=== PATIENT | female | born 1995 | race American Indian/Alaskan Native ===

== ENCOUNTER 2017-06-18 16:59 | Emergency (ER) | payer OTHER ==
[2017-06-18 16:59] VITALS: BMI 38.7
[2017-06-18 18:05] VITALS: BP 132/84; PULSE 86; RESP 18; TEMP 98.3; O2SAT 98
[2017-06-18 18:53] LABS: HCG,QUALITATIVE URINE NEGATIVE (NEGATIVE)
[2017-06-18 18:57] LABS: SQUAMOUS EPITHIAL 4 /hpf (0-5); URINE BACTERIA OCC (<OCC); URINE BILIRUBIN NEGATIVE (NEGATIVE); URINE BLOOD 3+ (NEGATIVE); URINE CLARITY Hazy (Clear); URINE COLOR Yellow (YELLOW); URINE GLUCOSE (UA) NORMAL (Normal); URINE LEUKOCYTE ESTERASE NEG Leu/uL (Negative); URINE PROTEIN NEGATIVE (NEGATIVE)
[2017-06-18] MEDS ORDERED: Sodium Chloride 0.9% 1,000 ML IV ONE (19:04)
[2017-06-18 19:08] LABS: BASO # 0.1 K/uL (0.0-0.2); EOS # 0.1 K/uL (0.0-0.7); EOS % 1.2 % (0.0-4.0); HEMOGLOBIN 13.2 g/dL (11.0-16.0); LYMPH # 2.6 K/uL (1.0-4.3); LYMPH % 36.4 % (20.0-40.0); MEAN CELL VOLUME 87.4 fL (81.0-99.0); MEAN CORPUSCULAR HEMOGLOBIN 29.7 pg (27.0-31.0); MEAN PLATELET VOLUME 8.2 fL (7.2-11.7); MONO # 0.7 K/uL (0.0-0.8); MONO % 9.1 % (0.0-10.0); NEUT # 3.8 K/uL (1.8-7.0); NEUT % 52.3 % (50.0-75.0); NRBC % 0.1 % (0.0-2.0); RBC 4.42 Mil/uL (3.80-5.20); RED CELL DISTRIBUTION WIDTH 13.8 % (11.5-14.5); WHITE BLOOD COUNT 7.2 K/uL (4.8-10.8)
[2017-06-18] MEDS ORDERED: Sodium Chloride 0.9% 1,000 ML ONE (19:12)
[2017-06-18 19:21] LABS: ALB/GLOB RATIO 1.1 (1.0-2.1); ALBUMIN 3.7 g/dL (3.5-5.0); ALT/SGPT 29 U/L (9-52); AST/SGOT 18 U/L (14-36); BLOOD UREA NITROGEN 9 mg/dL (7-17); CALCIUM 8.8 mg/dl (8.6-10.4); GFR AFRICAN-AMERICAN > 60; GFR NON-AFRICAN AMERICAN > 60
--- NOTE | 2017-06-18 19:54 | C.PDOC ---
History Of Present Illness 21 year old female presents to the ED for evaluation of lightheadedness and weakness. Patient states she has been having heavy menses since 06/02 that is associated with pelvic cramping. Patient reports history of heavy periods. She is unsure if she is . Patient denies chest pain, shortness of breath, palpitations, nausea, vomiting, and diarrhea. Time Seen by Provider: 06/18/17 18:44 Chief Complaint (Nursing): Female Genitourinary History Per: Patient History/Exam Limitations: no limitations Onset/Duration Of Symptoms: Days Current Symptoms Are (Timing): Still Present Associated Symptoms: denies: Nausea, Vomiting, Diarrhea Additional History Per: Patient Past Medical History Reviewed: Historical Data, Nursing Documentation, Vital Signs Vital Signs: Last Vital Signs Temp 98.3 F 06/18/17 18:04 Pulse 86 06/18/17 18:04 Resp 18 06/18/17 18:04 BP 132/84 06/18/17 18:04 Pulse Ox 98 06/18/17 20:12 - Medical History PMH: No Chronic Diseases Surgical History: Appendectomy Family History: States: Unknown Family Hx - Social History Hx Tobacco Use: Yes Hx Alcohol Use: No Hx Substance Use: No - Immunization History Hx Tetanus Toxoid Vaccination: (Unknown) Hx Influenza Vaccination: Yes (UTD) Hx Pneumococcal Vaccination: No Review Of Systems Cardiovascular: Negative for: Chest Pain, Palpitations Respiratory: Negative for: Shortness of Breath Gastrointestinal: Negative for: Nausea, Vomiting, Diarrhea Neurological: Positive for: Weakness, Other (lightheadedness) Physical Exam - Physical Exam Appears: Non-toxic, No Acute Distress Skin: Normal Color, Warm, Dry Head: Atraumatic, Normacephalic Eye(s): bilateral: Normal Inspection Oral Mucosa: Moist Neck: Supple Chest: Symmetrical, No Deformity, No Tenderness Cardiovascular: Rhythm Regular, No Murmur Respiratory: Normal Breath Sounds, No Rales, No Rhonchi, No Wheezing Gastrointestinal/Abdominal: Soft, Tenderness (suprapubic ), No Guarding, No Rebound, No Other (McBurney's point tenderness ) Extremity: Normal ROM, Capillary Refill (less than 2 seconds ) Neurological/Psych: Oriented x3, Normal Speech, Normal Cognition ED Course And Treatment - Laboratory Results Result Diagrams: 06/18/17 19:06 04/09/18 19:06 O2 Sat by Pulse Oximetry: 98 (on RA) Pulse Ox Interpretation: Normal Progress Note: Bloodwork and UA ordered and reviewed. Patient given IV Fluids. On reassessment, patient is resting comfortably, showing no signs of distress and is stable for discharge. Patient is advised to f/u with her LEGAL FINANCIAL SPECIALIST within one week and/or return to the ED if symptoms persist or worsen. Disposition Counseled Patient/Family Regarding: Studies Performed, Diagnosis, Need For Followup - Disposition Referrals: Emery Saha MD [Medical Doctor] - [facility] [Outside] Disposition: HOME/ ROUTINE Disposition Time: 19:50 Condition: STABLE Additional Instructions: FOLLOW UP WITH LEGAL FINANCIAL SPECIALIST WITHIN 1 WEEK RETURN TO ER IF SYMPTOMS WORSEN Prescriptions: Naproxen 375 mg PO BID PRN #20 tablet PRN Reason: pain Instructions: Heavy Periods (DC) Forms: [employer]lick (Sami) Print Language: IRISH - Clinical Impression Clinical Impression: Menorrhagia - Scribe Statement The provider has reviewed the documentation as recorded by the Scribe (Samina Berry) Provider Attestation: All medical record entries made by the Scribe were at my direction and personally dictated by me. I have reviewed the chart and agree that the record accurately reflects my personal performance of the history, physical exam, medical decision making, and the department course for this patient. I have also personally directed, reviewed, and agree with the discharge instructions and disposition.
== END 2017-06-18 20:23 | disposition home or self-care (01) ==
LOC: C.ER 16:59
DX: N92.0 Excessive and frequent menstruation with regular cycle (principal)
CPT/HCPCS: 80053; 81001; 84703; 85025; 99284; J7040

== ENCOUNTER 2017-07-06 00:21 | Emergency (ER) | payer OTHER ==
[2017-07-06 00:21] VITALS: BMI 38.7
[2017-07-06 00:31] VITALS: TEMP 98
[2017-07-06 00:47] LABS: HCG,QUALITATIVE URINE NEGATIVE (NEGATIVE)
[2017-07-06 00:53] LABS: SQUAMOUS EPITHIAL 54 /hpf (0-5); URINE BACTERIA MOD (<OCC); URINE BILIRUBIN NEGATIVE (NEGATIVE); URINE BLOOD NEGATIVE (NEGATIVE); URINE CLARITY Hazy (Clear); URINE COLOR Amber (YELLOW); URINE GLUCOSE (UA) NORMAL (Normal); URINE LEUKOCYTE ESTERASE 3+ Leu/uL (Negative); URINE PROTEIN 2+ mg/dL (NEGATIVE)
--- NOTE | 2017-07-06 01:19 | C.PDOC ---
History Of Present Illness 22 year old female presents to the ER with a complaint of thick foul smelling discharge for the past 2-3 days, associated with mild dysuria. Denies fever or abdominal pain. Time Seen by Provider: 07/06/17 00:45 Chief Complaint (Nursing): Female Genitourinary History Per: Patient History/Exam Limitations: no limitations Onset/Duration Of Symptoms: Days Current Symptoms Are (Timing): Still Present Quality Of Discomfort: Unable To Describe Associated Symptoms: Urinary Symptoms (Mild dysuria), Other (Thick foul smelling discharge. No abdominal pain). denies: Fever Alleviating Factors: None Recent travel outside of the [place]: No Abnormal Vaginal Bleeding: No Past Medical History Reviewed: Historical Data, Nursing Documentation, Vital Signs Vital Signs: Last Vital Signs Temp 98 F 07/06/17 01:41 Pulse 89 07/06/17 01:41 Resp 20 07/06/17 01:41 BP 116/68 07/06/17 01:41 Pulse Ox 99 07/06/17 01:41 Surgical History: Appendectomy Family History: States: Unknown Family Hx - Social History Hx Tobacco Use: Yes Hx Alcohol Use: No Hx Substance Use: No - Immunization History Hx Tetanus Toxoid Vaccination: (Unknown) Hx Influenza Vaccination: No Hx Pneumococcal Vaccination: No Review Of Systems Constitutional: Negative for: Fever, Chills Gastrointestinal: Negative for: Abdominal Pain Genitourinary: Positive for: Dysuria, Vaginal Discharge Physical Exam - Physical Exam Appears: Non-toxic Skin: Normal Color, Warm, Dry Head: Atraumatic, Normacephalic Eye(s): bilateral: Normal Inspection Back: No CVA Tenderness Pelvic: No Cervical Motion Tenderness, No Adnexal Tenderness, Other (Thick copious whitish watery discharge) Neurological/Psych: Oriented x3, Normal Speech ED Course And Treatment O2 Sat by Pulse Oximetry: 98 (Room air) Pulse Ox Interpretation: Normal Progress Note: Urinalysis ordered, results were negative; urine culture sent. Patient resting comfortably in no acute distress, will discharge home with instructions to follow up with follow up with PMD. Disposition Counseled Patient/Family Regarding: Diagnosis, Need For Followup, Rx Given - Disposition Referrals: Freddy Dickinson Jr., MD [Primary Care Provider] - Disposition: HOME/ ROUTINE Disposition Time: 01:16 Condition: STABLE Additional Instructions: Please follow up with PMD Take meds as directed ' Return to ER if worse Prescriptions: metroNIDAZOLE [Flagyl] 500 mg PO BID #14 tab Nitrofurantoin Macrocrystals [Macrobid] 1 cap PO BID #14 cap Instructions: Bacterial Vaginosis (DC), Urinary Tract Infection, Adult (DC) Forms: [employer] (Slovenian) - Clinical Impression Clinical Impression: UTI (urinary tract infection), Bacterial vaginosis - PA / ADMITTING REPRESENTATIVE / Resident Statement MD/DO has reviewed & agrees with the documentation as recorded. - Scribe Statement The provider has reviewed the documentation as recorded by the Scribe Slade Barbosa All medical record entries made by the Gaby were at my direction and personally dictated by me. I have reviewed the chart and agree that the record accurately reflects my personal performance of the history, physical exam, medical decision making, and the department course for this patient. I have also personally directed, reviewed, and agree with the discharge instructions and disposition.
[2017-07-06 01:42] VITALS: BP 116/68; PULSE 89; RESP 20
[2017-07-06 03:25] VITALS: O2SAT 98
== END 2017-07-06 01:42 | disposition home or self-care (01) ==
LOC: C.ER 00:21 → SUPCPDRO 00:21 → C.ER 01:42
DX: N39.0 Urinary tract infection, site not specified (principal); N76.0 Acute vaginitis

== ENCOUNTER 2018-02-11 16:28 | Emergency (ER) | payer OTHER ==
[2018-02-11 16:28] VITALS: BMI 38.7
[2018-02-11 16:37] VITALS: RESP 18; O2SAT 100
--- NOTE | 2018-02-11 17:20 | C.PDOC ---
History Of Present Illness 22 yo female come in for evaluation of lower abdominal discomfort gradually developed for past week associated with discomfort on urination, urinary frequency. LNMP 01/08/18. Otherwise, pt denies fever, chills, recent illness, neck pain, CP, SOB, dyspnea, N/V/D, back pian, hematuria. Ambulate to Ed for evaluation, not in any apparent distress. <Camille Wright - Last Filed: 02/11/18 18:59> History Per: Patient <Camille Wright - Last Filed: 02/11/18 18:59> <Fay Santiago - Last Filed: 02/11/18 20:52> Time Seen by Provider: 02/11/18 16:57 Chief Complaint (Nursing): Abdominal Pain Past Medical History Reviewed: Historical Data, Nursing Documentation, Vital Signs Vital Signs: Last Vital Signs Temp 98.1 F 02/11/18 16:34 Pulse 80 02/11/18 16:34 Resp 18 02/11/18 16:34 BP 112/77 02/11/18 16:34 Pulse Ox 100 02/11/18 16:34 - Medical History PMH: No Chronic Diseases Surgical History: Appendectomy Family History: States: Unknown Family Hx - Social History Hx Tobacco Use: Yes Hx Alcohol Use: No Hx Substance Use: No - Immunization History Hx Tetanus Toxoid Vaccination: No (Unknown) Hx Influenza Vaccination: No Hx Pneumococcal Vaccination: No <KorinabeataCamille - Last Filed: 02/11/18 18:59> Vital Signs: Last Vital Signs Temp 98.1 F 02/11/18 16:34 Pulse 80 02/11/18 16:34 Resp 18 02/11/18 16:34 BP 112/77 02/11/18 16:34 Pulse Ox 100 02/11/18 19:00 <Fay Santiago - Last Filed: 02/11/18 20:52> Review Of Systems Except As Marked, All Systems Reviewed And Found Negative. Constitutional: Negative for: Fever, Chills ENT: Negative for: Throat Pain, Throat Swelling Cardiovascular: Negative for: Chest Pain, Palpitations, Edema, Light Headedness Respiratory: Negative for: Cough, Shortness of Breath Gastrointestinal: Positive for: Abdominal Pain (lower/suprapubic). Negative for: Nausea, Vomiting, Diarrhea, Hematochezia, Hematemesis Genitourinary: Positive for: Frequency. Negative for: Dysuria, Hematuria, Vaginal Discharge Musculoskeletal: Negative for: Back Pain Skin: Negative for: Rash Neurological: Negative for: Altered Mental Status, Headache, Dizziness <Camille Wright - Last Filed: 02/11/18 18:59> Physical Exam - Physical Exam Appears: Well, Non-toxic, No Acute Distress Skin: Normal Color, Warm, Dry, No Rash Head: Normacephalic Eye(s): bilateral: PERRL Nose: No Flaring, No Discharge Oral Mucosa: Moist Throat: No Drooling Neck: Trachea Midline, Supple Cardiovascular: Rhythm Regular, No Murmur, No JVD Respiratory: No Decreased Breath Sounds, No Accessory Muscle Use, No Stridor, No Wheezing Gastrointestinal/Abdominal: Soft, Tenderness (mild suprapubic), No Distention, No Guarding, No Rebound Back: No CVA Tenderness Extremity: Normal ROM, No Deformity, No Swelling Neurological/Psych: Oriented x3, Normal Speech <Camille Wright - Last Filed: 02/11/18 18:59> ED Course And Treatment - Laboratory Results Urine POC: Negative O2 Sat by Pulse Oximetry: 100 Pulse Ox Interpretation: Normal Progress Note: On re-eval, pt remained stable, not in any apparent distress. Abd: benign, (-) guarding, (-) rebound, (-) RLQ tenderness. back: (-) CVA tenderness. UA results review - normal study. Transvaginal US ordered. <Camille Wright - Last Filed: 02/11/18 18:59> Pulse Ox Interpretation: Normal Reevaluation Time: 20:50 Reassessment Condition: Improved <Fay Santiago - Last Filed: 02/11/18 20:52> Disposition - Disposition Disposition Time: 18:59 <Camille Wright - Last Filed: 02/11/18 18:59> Counseled Patient/Family Regarding: Studies Performed, Diagnosis, Need For Followup, Rx Given <Fay Santiago - Last Filed: 02/11/18 20:52> - Disposition Referrals: [facility] [Outside] [facility] [Outside] Disposition: HOME/ ROUTINE Condition: STABLE Additional Instructions: Please return if symptoms recur and follow up with your interior assemblies developer prover Prescriptions: Naproxen [Naprosyn] 1 tab PO BID PRN #25 tab PRN Reason: Pain Instructions: Ovarian Cyst (DC) Forms: [employer] (Yi) - Clinical Impression Clinical Impression: Suprapubic discomfort, Ovarian cyst Physician Patient Turnover Patient Signed Over To: Fay Santiago Handoff Comments: Pelvic US, re-eval, dispo <Camille Wright - Last Filed: 02/11/18 18:59>
[2018-02-11 17:34] LABS: HCG,QUALITATIVE URINE NEGATIVE (NEGATIVE); SQUAMOUS EPITHIAL 7 /hpf (0-5); URINE BILIRUBIN NEGATIVE (NEGATIVE); URINE BLOOD NEGATIVE (NEGATIVE); URINE CLARITY Clear (Clear); URINE COLOR Yellow (YELLOW); URINE GLUCOSE (UA) NORMAL (Normal); URINE LEUKOCYTE ESTERASE NEG Leu/uL (Negative); URINE PROTEIN NEGATIVE (NEGATIVE); URINE UROBILINOGEN NORMAL mg/dL (0.2-1.0)
[2018-02-11 21:05] VITALS: BP 122/80; PULSE 62; TEMP 98
--- NOTE | 2018-02-12 11:05 | US ---
Date of service: 02/11/2018 HISTORY: suprapubic pain COMPARISON: Transvaginal/pelvic ultrasound performed 04/10/14 TECHNIQUE: Real-time transabdominal pelvic ultrasound was performed. In addition a transvaginal pelvic ultrasound was necessary to better depict pelvic anatomy. FINDINGS: UTERUS: Measures 9.3 x 4.6 x 5.0 cm. Retroverted. ENDOMETRIUM: Measures 6 mm in diameter. CERVIX: No cervical abnormality identified. RIGHT OVARY: Measures 5.0 x 3.4 x 4.4 cm. Blood flow is demonstrated. 3.9 x 2.8 x 4.0 cm right ovarian cyst. LEFT OVARY: Measures 4.1 x 2.5 x 3.0 cm. Blood flow is demonstrated. 2.5 x 0.6 x 2.0 cm follicle/cyst. 1.0 x 1.2 x 1.0 cm para ovarian cyst. FREE FLUID: No significant free fluid noted. OTHER FINDINGS: None. IMPRESSION: Bilateral ovarian cysts. Left para ovarian cyst. Preliminary impression was provided by Ahonya.
== END 2018-02-11 21:04 | disposition home or self-care (01) ==
LOC: C.ER 16:28
DX: N83.209 Unspecified ovarian cyst, unspecified side (principal); R10.30 Lower abdominal pain, unspecified